=== PATIENT | male | born 1980 | race Caucasian/White ===

== ENCOUNTER 2023-10-04 13:15 | Emergency (ER) | payer SELFPAY ==
[2023-10-04 13:19] VITALS: BP 138/89
[2023-10-04 13:33] LABS: % Basophils 0.8 % (0-2); % Eosinophils 1.9 % (0-6); % Immature Granulocytes 0.3 % (0-0.5); % Lymphocytes 35.1 % (20.5-51.1); % Monocytes 7.9 % (1.7-9.3); Absolute Basophils 0.1 10^3/uL (0-0.2); Absolute Eosinophils 0.1 10^3/uL (0-0.7); Absolute Lymphocytes 2.6 10^3/uL (1.2-3.4); Absolute Monocytes 0.6 10^3/uL (0.1-0.6); Hemoglobin 14.9 g/dL (13.0-18.0); Mean Corp Hgb Conc. 35.5 g/dL (33.0-37.0); Mean Corpuscular Hgb 31.8 pg (27.0-31.0); Mean Corpuscular Volume 89.6 fL (80.0-94.0); Mean Platelet Volume 9.1 fL (7.4-10.4); Nucleated Red Blood Cells % 0 % (-); Platelet Count 257 10^3/uL (130-400); Red Blood Cell Count 4.69 10^6/uL (4.70-6.10); Red Cell Dist. Width 12.8 % (11.5-14.5); White Blood Cell Count 7.4 10^3/uL (4.8-10.8)
[2023-10-04 13:47] LABS: ALT (SGPT) 26 U/L (0-50); AST (SGOT) 26 U/L (17-59); Albumin 4.8 g/dl (3.5-5.0); Alkaline Phosphatase 38 U/L (38-126); Blood Urea Nitrogen 17 mg/dl (9-20); Calcium 9.3 mg/dl (8.4-10.2); Carbon Dioxide 28 mmol/L (22-30); Chloride 103 mmol/L (98-107); Glucose 117 mg/dl (70-99); Sodium 139 mmol/L (135-145); Total Bilirubin 0.7 mg/dl (0.2-1.3); Total Protein 7.6 g/dl (6.3-8.2); eGFR > 60.00
[2023-10-04 13:49] VITALS: BP 129/75
[2023-10-04 13:58] LABS: Troponin I < 0.012 ng/ml
[2023-10-04 14:00] VITALS: BP 125/69
[2023-10-04] MEDS: TORADOL 30 MG IV (14:40)
--- NOTE | 2023-10-04 14:46 | ED.GENMED ---
History of Present Illness
General
Chief Complaint: Chest Pain
Source: patient
Exam Limitations: none
Time Seen by Provider: 10/04/23 13:59
Nursing documentation reviewed up to this point in time: agreed with
Travel History
Have you had any contact with someone who has COVID-19?: No
Do you have any symptoms of coronavirus? Fever > 100 degrees, chills, cough, shortness of breath, sore throat, loss of taste or smell, muscle aches, or headache?: No
History of Present Illness
History of Present Illness:
43 y/o anxiety
here with ches tpain x 4-5 days
felt as a constamt pressure like someone is standing on his chest
not worse with exertion but it is worse with deep breathing
he has had rell eongoing left lower rib pain - started 8 mo ago and he thought it got better but then got shingles to this area, however he didn't have the pain ath the time of the shingles
he says that in the past 4-5 dayst eh left rib pain is worse, worse with deep breathing and movement
no leg swelling
recent 5 horu flight to [place]
no h/o CAD in primary relatives
no smoker
nothing taken for pain
says today he started feeling some tingling in his hands and feet and that worried him [facility]
he does have h/o anxiety but doesn'f eel particularly stressed
he was started on lexapro 1 mo ago and uses trazodone for sleep for 3 mo, related to anxiety
Past History
Past History
ED Past Medical History: None
ED Past Surgical History: None
Patient has exhibited threatening behavior?: No
Social History
Tobacco: Non-smoker
Living: with family
Employment: Employed
Review of Systems
Review of Systems
Allergies reviewed?: Yes
All Other Systems: Not applicable
Phy Exam
Physical Exam
Physical Exam:
GENERAL: Alert , in no apparent distress, well appearing, no distress
EYE: pupils equal and reactive
NECK: Supple
ENT: o/p clr, mmm.
CARDIAC: Regular rate and rhythm .
LUNGS: Clear breath sounds bilaterally, no acute respiratory distress, no wheezes/rales/rhonchi
left lower ribs normal insepction
no rash
mild rib tendenress with palpaiation
ABDOMEN: Soft, without focal tenderness, no r/g, no cvat, normal bowel sounds
no upper abd tenderness;
NEUROLOGICAL: Alert and oriented, no focal neuro deficits
SKIN: Warm and dry, skin intact.
MUSCULOSKELETAL: No edema, well perfused. neg alfredo's sign
PSYCH: Normal and appropriate interaction.
Scores
Heart Score for Chest Pain Patients
STEMI patient?: No
History: Slightly or Non-Suspicious
ECG: Normal
Age: </= 45 years
Risk Factors: No Risk Factors
Troponin: </= Normal Limit
Heart Score for Chest Pain Patients: 0
Heart Score Risk: 2.5% MACE over next 6 weeks
Course
Orders/Labs/Results
Orders:
Orders
10/04/23 13:17
Electrocardiogram (*1) Urgent
Reason for Study: Palpitations
10/04/23 13:18
EKG- Treatment ONCE
10/04/23 13:21
IV Insert/Care/Rem.- Treatment PRN
10/04/23 13:25
Complete Blood Count/With Diff Urgent
Comprehensive Metabolic Panel Urgent
Lipase Urgent
Comment: ADD ON
Troponin I Urgent
10/04/23 14:36
Add On- LAB Urgent
Tests Added?: lipase
Ketorolac [Toradol] 30 mg IV NOW STA
10/04/23 14:40
D-Dimer Urgent
10/04/23 16:03
CR Chest - 2 Views Urgent
Comment:
Reason For Exam: lfet sided chest pain
Abnormal Lab Results
10/04/23
13:25
RBC 4.69 L 10^6/uL
(4.70-6.10)
MCH 31.8 H pg
(27.0-31.0)
Glucose 117 H mg/dl
(70-99)
10/04/23 13:25
10/04/23 13:25
Vital Signs
Initial and Last Documented VS:
Initial Vital Signs
Temp Pulse Resp BP Pulse Ox
98.7 F 67 18 138/89 99
10/04/23 13:19 10/04/23 13:19 10/04/23 13:19 10/04/23 13:19 10/04/23 13:19
Last Documented Vital Signs
Temp Pulse Resp BP Pulse Ox
98.7 F 57 19 125/69 97
10/04/23 13:19 10/04/23 16:00 10/04/23 15:45 10/04/23 14:00 10/04/23 16:00
MDM/Problems Addressed
Differential Diagnosis Includes:
cad, PE, pleural effusion, gerd, anxiety
MDM/Problems Addressed:
43 y/o M with constant chest pressurex 5 days with some worseing left pleuritic rib pain (which has been ongoing for months but seems worse)
as well as tingling in arms and legs, today [facility]
recent long travel in a flight
no h/o dvt pe
and no h/o premature CAD in primary relatives
heart score is 0
pt is well appearing
slightly anxious
heart/nlungs normal
no signs of dvt
d dimer candidate
ekg and trop neg r/o ACS
d dimer neg
will order CXR
cxr indep reivewed, neg
pt feels better after toradol
feels reassured
pain in ribs possibly nerve pain, has had gabapentin previously for it
but didn't like the way it made him feel
f/u pcp for outpatient cards
d/c hoem
*Critical Care Note
Total Time (30-74mins, 75-104mins- exclusive of procedures): Not Applicable
ED Attending Note
-
Portions of this chart may have been created with voice recognition software.� Occasional wrong word or��sound alike� substitutions may have occurred due to the inherent limitations of voice recognition software.
Discharge Plan
Departure
Patient Disposition: Home (Routine Discharge)
Date of Disposition: 10/04/23
Time of Disposition: 17:12
Patient with high blood pressure during this ER visit?: No
Condition: Fair
Covid-19: Not Applicable
Discharge Problem:
Chest pain, Pain in rib
Instructions: Costochondritis (DC), Chest Pain PCP Follow Up
Prescriptions:
No Action
Multiple Vitamins
1 tab PO DAILY
cyclobenzaprine [Flexeril] 10 MG tablet
10 mg PO TIDPRN PRN (Reason: muscle spasm) Qty: 30 0RF
ibuprofen 800 MG tablet
800 mg PO Q6HPRN PRN (Reason: pain with food) Qty: 30 0RF
amoxicillin 500 MG capsule
500 mg PO TID Qty: 29 0RF
Referrals:
Guillermo Rod PA-C [Family Provider] - Follow up in 2-3 days
Activity Restrictions/Additional Instructions:
We are not sure the cause of your chest discomfort but you had no signs of a heart attack, your EKG was normal, your troponin enzyme was normal and your D-dimer test was negative ruling out a blood clot. Your x-ray looks clear. You could be having
some rib pain from the shingles that you had lying dormant in the nerve causing nerve pain. This may be best to be treated by your family doctor, sometimes a prescribed nerve medication like gabapentin to help with this.
In the meantime you should take ibuprofen every 8 hours with food. You can also try Tylenol. Return to the ER for worsening chest discomfort, shortness of breath or any concerns
Interventions
Interventions:
*Risk Screen - Suicide Last Done: 10/04/23 13:22
*General Assessment Last Done: 10/04/23 13:22
*Neglect/Abuse Screening Last Done: 10/04/23 13:22
*Nursing Disposition Last Done: 10/04/23 17:35
ED- Cardiac Assessment Last Done: 10/04/23 15:15
ED- Pulmonary Assessment Last Done: 10/04/23 15:15
Discharge Date and Time
Discharge Date/Time: 10/04/23 17:44
Print Language: FAROESE
[2023-10-04 15:17] LABS: Lipase 101 U/L (23-300)
[2023-10-04 16:01] LABS: D-Dimer < 0.27 ug/mlFEU (0.00-0.50)
== END 2023-10-04 17:44 | disposition home or self-care (01) ==
LOC: EMR 13:15
PROVIDERS: Physician Assistant; EMERGENCY PHYSICIAN Emergency Medicine; FAMILY PHYSICIAN Physician Assistant Medical
DX: R07.89 Other chest pain (principal); R07.81 Pleurodynia; F41.9 Anxiety disorder, unspecified
CPT/HCPCS: 99283; 96374; 71046; 80053; 83690; 84484; 85025; 85379; 93005

== ENCOUNTER → 2023-12-04 14:59 | Outpatient (REF) | payer OTHER, SELFPAY | LOC: RCS 14:59 | PROVIDERS: ATTENDING PHYSICIAN Internal Medicine Cardiovascular Disease; FAMILY PHYSICIAN Physician Assistant Medical | DX: I47.10 Supraventricular tachycardia, unspecified (principal) | CPT/HCPCS: 93306 ==

== ENCOUNTER 2024-06-19 16:05 | Emergency (ER) | payer OTHER, SELFPAY ==
[2024-06-19 16:20] VITALS: BP 141/97
[2024-06-19 16:47] LABS: % Basophils 0.8 % (0-2); % Eosinophils 1.6 % (0-6); % Immature Granulocytes 0.4 % (0-0.5); % Monocytes 8.1 % (1.7-9.3); % Neutrophils 54.1 % (42.2-75.2); Absolute Basophils 0.1 10^3/uL (0-0.2); Absolute Eosinophils 0.2 10^3/uL (0-0.7); Absolute Lymphocytes 3.4 10^3/uL (1.2-3.4); Absolute Monocytes 0.8 10^3/uL (0.1-0.6); Absolute Neutrophils 5.3 10^3/uL (1.4-6.5); Hematocrit 45.7 % (39.0-52.0); Hemoglobin 15.9 g/dL (13.0-18.0); Mean Corp Hgb Conc. 34.8 g/dL (33.0-37.0); Mean Corpuscular Volume 89.1 fL (80.0-94.0); Mean Platelet Volume 9.3 fL (7.4-10.4); Nucleated Red Blood Cells % 0 % (-); Platelet Count 245 10^3/uL (130-400); Red Blood Cell Count 5.13 10^6/uL (4.70-6.10); Red Cell Dist. Width 12.4 % (11.5-14.5); White Blood Cell Count 9.8 10^3/uL (4.8-10.8)
[2024-06-19 17:01] LABS: ALT (SGPT) 39 U/L (0-50); AST (SGOT) 30 U/L (17-59); Albumin 5.4 g/dl (3.5-5.0); Alkaline Phosphatase 54 U/L (38-126); Blood Urea Nitrogen 15 mg/dl (9-20); Calcium 9.4 mg/dl (8.4-10.2); Carbon Dioxide 25 mmol/L (22-30); Chloride 101 mmol/L (98-107); Glucose 96 mg/dl (70-99); Potassium 3.9 mmol/L (3.5-5.1); Sodium 139 mmol/L (135-145); Total Bilirubin 0.7 mg/dl (0.2-1.3); Total Protein 8.1 g/dl (6.3-8.2); eGFR > 60.00
[2024-06-19 17:11] LABS: Troponin I < 0.012 ng/ml
[2024-06-19 17:31] LABS: TSH Reflex To Free T4 1.92 uIU/ml (0.47-4.68)
[2024-06-19 18:04] VITALS: BP 135/90
[2024-06-19 19:00] VITALS: BP 137/87
--- NOTE | 2024-06-19 19:45 | ED.GENMED ---
History of Present Illness
General
Chief Complaint: Chest Problem
Time Seen by Provider: 06/19/24 19:09
History of Present Illness
History of Present Illness:
44-year-old male with history of anxiety and depression presenting to the emergency department for palpitations. Patient reports around noon today he was going up the stairs and his heart rate went high, notes on his watch it was 180. Reports that
he also had not episode of this on Saturday. Notes that he has had this in the past, has been ongoing since September of last year. He saw cardiology who thought maybe he had episodes of SVT and prescribed diltiazem to be used as needed. He did not take
the diltiazem today. He was concerned because he is on sertraline and is unsure whether or not he was having a reaction to the medication, however has also been taking this medication since September. Notes he does have some chest tightness. Denies any
known cardiac history. Denies difficulty breathing. Denies abdominal pain or GI symptoms. Denies additional acute medical complaints
Past History
Past History
ED Past Medical History: None
ED Past Surgical History: None
Patient has exhibited threatening behavior?: No
Social History
Tobacco: Non-smoker
Living: with family
Employment: Employed
Phy Exam
Physical Exam
Physical Exam:
General: Well-appearing, no clinical signs of dehydration, nontoxic and in no acute distress
HEENT: protecting airway
Neck: appears supple
CV: Normal heart rate, regular rhythm
Resp: No accessory muscle use, no increased work of breathing, lungs clear to auscultation bilaterally
Abd: No distention
Extremities: No deformities, no swelling, no erythema
Neuro: alert, no focal neurologic deficit
: deferred
Rectal: deferred
Psych: Normal affect
Skin: Intact
Course
Orders/Labs/Results
Orders:
Orders
06/19/24 16:06
ECG [Electrocardiogram (*1)] Urgent
Reason for Study: Palpitations
06/19/24 16:07
EKG- Treatment ONCE
06/19/24 16:37
Complete Blood Count/With Diff Urgent
Comprehensive Metabolic Panel Urgent
Magnesium Urgent
TSH Reflex To Free T4 Urgent
Troponin I Urgent
Abnormal Lab Results
06/19/24
16:37
Absolute Monos (auto) 0.8 H 10^3/uL
(0.1-0.6)
Albumin 5.4 H g/dl
(3.5-5.0)
06/19/24 16:37
06/19/24 16:37
Vital Signs
Initial and Last Documented VS:
Initial Vital Signs
Temp Pulse Resp BP Pulse Ox
98.1 F 85 20 141/97 99
06/19/24 16:20 06/19/24 16:20 06/19/24 16:20 06/19/24 16:20 06/19/24 16:20
Last Documented Vital Signs
Temp Pulse Resp BP Pulse Ox
98.1 F 57 11 137/87 96
06/19/24 16:20 06/19/24 19:00 06/19/24 19:00 06/19/24 19:00 06/19/24 19:00
MDM/Problems Addressed
MDM/Problems Addressed:
44-year-old male with history of anxiety and depression presenting for elevated heart rate prior to arrival. Vital signs on arrival are normal.
On exam patient is resting comfortably, no acute distress or discomfort. She had EKG upon arrival, sinus rhythm. No tachycardia at this time. Unclear preceding elevated heart rate episode, however notes that it was 150 which does appear
consistent with likely SVT. Patient is not currently having elevated heart rate. Patient had screening laboratory analysis prior to my assessment, normal TSH, normal electrolyte panel, undetectable troponin. Without current concern for ACS given
duration of patient's chest tightness and absence of any cardiac risk factors. Do not suspect reaction to patient sertraline, has been on the medication for almost a year. No present concern for serotonin syndrome. At this time feel stable for
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 Return precautions discussed and patient verbalized understanding
*EKG
Interpreted by ED Provider?: Yes
EKG Intrepretation Date: 06/19/24
EKG Intrepretation Time: 19:47
Interpretation: normal
Comparison EKG: no changes (08/04/23)
Heart Rate: 68
Rate: normal
Rhythm: sinus
[place]: normal axis
QRS Pattern: normal QRS
Ischemia: no ischemia
*Critical Care Note
Total Time (30-74mins, 75-104mins- exclusive of procedures): Not Applicable
ED Attending Note
-
Portions of this chart may have been created with voice recognition software.� Occasional wrong word or��sound alike� substitutions may have occurred due to the inherent limitations of voice recognition software.
Discharge Plan
Departure
Prescriptions:
No Action
Multiple Vitamins
1 tab PO DAILY
cyclobenzaprine [Flexeril] 10 MG tablet
10 mg PO TIDPRN PRN (Reason: muscle spasm) Qty: 30 0RF
ibuprofen 800 MG tablet
800 mg PO Q6HPRN PRN (Reason: pain with food) Qty: 30 0RF
amoxicillin 500 MG capsule
500 mg PO TID Qty: 29 0RF
Referrals:
Guillermo Rod PA-C [Family Provider] -
Interventions
Interventions:
*Risk Screen - Suicide Last Done: 06/19/24 18:05
*General Assessment Last Done: 06/19/24 16:20
*Neglect/Abuse Screening Last Done: 06/19/24 18:05
*ED COVID-19 Vaccine History Last Done: 06/19/24 18:05
ED- Cardiac Assessment Last Done: 06/19/24 18:16
ED- Pulmonary Assessment Last Done: 06/19/24 18:16
Discharge Date and Time
Print Language: YAKUT
== END 2024-06-19 20:10 | disposition home or self-care (01) ==
LOC: EMR 16:05
PROVIDERS: Emergency Medicine; EMERGENCY PHYSICIAN Student in an Organized Health Care Education/Training Program; FAMILY PHYSICIAN Physician Assistant Medical
DX: R00.2 Palpitations (principal); Z79.899 Other long term (current) drug therapy
CPT/HCPCS: 99284; 80053; 83735; 84443; 84484; 85025; 93005

== ENCOUNTER → 2024-08-01 09:56 | Outpatient (REF) | payer OTHER, SELFPAY | LOC: RCS 09:56 | PROVIDERS: ATTENDING PHYSICIAN Family Medicine | DX: R00.2 Palpitations (principal) | CPT/HCPCS: 93225; 93226 ==